=== PATIENT | male | born 1955 | race African-American/Black ===

== ENCOUNTER 2017-08-16 15:34 | Inpatient (IN) | payer OTHER ==
[2017-08-16 15:51] VITALS: BMI 19.5
--- NOTE | 2017-08-16 19:58 | HP ---
COWS - Scale Resting Pulse: 1= ID [id number] Sweatin=Flushed/Facial Moisture Restless Observation: 3= Extraneous Movement Pupil Size: 2= Moderately Dilated Bone or Joint Aches: 2= Severe Diffuse Aches Runny Nose/ Eye Tearin= Runny Nose/Eyes GI Upset > 30mins: 3= Vomiting/Diarrhea Tremor Observation: 2= Slight Tremor Visible Yawning Observation: 2= >3x During Session Anxiety or Irritability: 2=Irritable/Anxious Goose Flesh Skin: 0=Smooth Skin COWS Score: 21 Admission ROS S - HPI Chief Complaint: i need help to stop using heroin Allergies/Adverse Reactions: Allergies Allergy/AdvReac Type Severity Reaction Status Date / Time No Known Allergies Allergy Verified 08/16/17 19:54 History of Present Illness: this 61 years old male with heroin dependence,seeking detox,withdrawal symptom, last detox 30 ears ago [facility], type 2 dm for 4 years on metformin 500 mgs po bid htn no med left inguinal hernia for 20 years seen in the clinic in [facility] sobriety 3 years nicotine dependence Exam Limitations: No Limitations - Ebola screening Have you traveled outside of the country in the last 21 days: No Have you had contact with anyone from an Ebola affected area: No Have you been sick,other than usual withdrawal symptoms: No Do you have a fever: No - Review of Systems Constitutional: Chills, Loss of Appetite, Malaise, Night Sweats, Changes in sleep, Weakness, Unintentional Wgt. Loss EENT: reports: Tearing, Nose Congestion Respiratory: reports: No Symptoms reported Cardiac: reports: No Symptoms Reported GI: reports: Diarrhea, Nausea, Vomiting, Abdominal cramping : reports: No Symptoms Reported Musculoskeletal: reports: Back Pain, Joint Pain, Muscle Pain, Joint Stiffness Integumentary: reports: Dryness Neuro: reports: Headache, Tremors Endocrine: reports: No Symptoms Reported Hematology: reports: No Symptoms Reported Psychiatric: reports: No Sypmtoms Reported (insomnia), Judgement Intact, Mood/ Affect Appropiate, Anxious, Depressed Patient History - Patient Medical History Hx Anemia: No Hx Asthma: No Hx Chronic Obstructive Pulmonary Disease (COPD): No Hx Cancer: No Hx Cardiac Disorders: No Hx Congestive Heart Failure: No Hx Hypertension: Yes (no medication) Hx Hypercholesterolemia: No Hx Pacemaker: No HX Cerebrovascular Accident: No Hx Seizures: No Hx Dementia: No Hx Diabetes: Yes (4 years on metformin 500 mgs po bid) Hx Gastrointestinal Disorders: No Hx Liver Disease: No Hx Genitourinary Disorders: No Hx Sexually Transmitted Disorders: No Hx Renal Disease (ESRD): No Hx Thyroid Disease: No Hx Human Immunodeficiency Virus (HIV): No (last 2017 negative ) Hx Hepatitis C: No Hx Depression: Yes Hx Suicide Attempt: No Hx Bipolar Disorder: No Hx Schizophrenia: No Other Medical History: insomnia,anxiety,no suicidal,no homicidal - Patient Surgical History Other Surgical History: tonsillectomy at age of 17 years - Smoking Cessation Smoking history: Current every day smoker Have you smoked in the past 12 months: Yes Aproximately how many cigarettes per day: 7 Cigars Per Day: 0 Hx Chewing Tobacco Use: No Initiated information on smoking cessation: Yes 'Breaking Loose' booklet given: 08/16/17 - Substance & Tx. History Hx Substance Use: Yes Substance Use Type: Heroin Hx Substance Use Treatment: Yes (30 years ago [facility]) - Substances Abused Heroin Route: Inhalation Frequency: Daily Amount used: 5 bags Age of first use: 29 Date of Last Use: 08/16/17 Family Disease History - Family Disease History Family Disease History: Diabetes: Brother, [place]: Father ( ,alcohol,cancer of throat), Other: Mother (alcohol,) Admission Physical Exam S - Vital Signs Vital Signs: Vital Signs - 24 hr 08/16/17 15:40 Temperature 98.1 F Pulse Rate 91 H Respiratory 20 Rate Blood Pressure 157/92 - Physical General Appearance: Yes: Moderate Distress, Tremorous, Irritable, Sweating, Anxious HEENTM: Yes: Normal ENT Inspection, ANNELISE, Pharynx Normal Respiratory: Yes: Lungs Clear, Normal Breath Sounds, No Respiratory Distress Neck: Yes: Within Normal Limits, Supple, Trachea in good position Breast: Yes: Within Normal Limits Cardiology: Yes: Within Normal Limits, Regular Rhythm, Regular Rate, S1, S2 Abdominal: Yes: Within Normal Limits, Normal Bowel Sounds, Non Tender, Soft, Other (left inguino scrotal hernia no tenderness) Genitourinary: Yes: Within Normal Limits Back: Yes: Muscle Spasm Musculoskeletal: Yes: full range of Motion, Back pain, Muscle Pain Extremities: Yes: Within Normal Limits, Normal Range of Motion, Tremors Neurological: Yes: account services manager II-XII NML intact, Fully Oriented, Alert, Motor Strength 5/5 Integumentary: Yes: Dry Lymphatic: Yes: Within Normal Limits - Diagnostic (1) Opioid dependence with withdrawal Current Visit: Yes Status: Acute (2) DM2 (diabetes mellitus, type 2) Current Visit: Yes Status: Acute (3) Left inguinal hernia Current Visit: Yes Status: Acute (4) Nicotine dependence Current Visit: Yes Status: Acute (5) Weight loss Current Visit: Yes Status: Acute (6) Neuropathy Current Visit: Yes Status: Acute (7) Insomnia secondary to depression with anxiety Current Visit: Yes Status: Acute Cleared for Admission [facility] - Detox or Rehab [facility] Level of Care: Medically Managed Detox Regimen/Protocol: Methadone [facility] Breath Alcohol Content Breath Alcohol Content: 0 Urine Drug Screen - Results Drug Screen Negative: No Urine Drug Screen Results: OPI-Opiates, OXY-Oxycodone
[2017-08-16] MEDS ORDERED: P-EPHED 60MG/TRIPROLIDI 2.5MG TABLET PO PRN (20:15)
[2017-08-16] MEDS ORDERED: guaiFENesin/D-METHORPHAN HB 10 ML UNIT-DOSE CUPS PO PRN (20:15)
[2017-08-16] MEDS ORDERED: METHADONE HCL 10 MG TABLET (FOR DETOX USE ONLY) PO ONE ×2 (20:15→23:00)
[2017-08-16] MEDS ORDERED: MAG HYDROX/AL HYDROX/SIMETH 30 ML UNIT-DOSE CUP PO PRN (20:15)
[2017-08-16] MEDS ORDERED: MAGNESIUM HYDROX 2400MG/30ML ORAL SUSPENSION 30 ML CUP PO PRN (20:15)
[2017-08-16] MEDS ORDERED: ACETAMINOPHEN 325 MG TABLET (FP) PO PRN (20:15)
[2017-08-16] MEDS ORDERED: MAGNESIUM CITRATE 300 ML BOTTLE PO PRN (20:15)
[2017-08-16] MEDS ORDERED: LOPERAMIDE HCL 2 MG CAPSULE PO PRN (20:15)
[2017-08-16] MEDS ORDERED: MENTHOL/PHENOL 1 EACH UD MM PRN (20:15)
[2017-08-16] MEDS: cloNIDine HCL 0.1 MG TABLET PO SCH (22:06)
[2017-08-16] MEDS: THIAMINE HCL 100 MG TABLET (FP) PO SCH (22:06)
[2017-08-16] MEDS: diazePAM 5 MG TABLET PO PRN (22:06)
[2017-08-16] MEDS: CYCLOBENZAPRINE HCL 10 MG TABLET (FP) PO PRN (22:06)
[2017-08-16] MEDS: NICOTINE 21 MG/24 HOURS TOPICAL PATCH TD SCH (22:11)
[2017-08-16 23:24] LABS: URINE APPEARANCE CLEAR; URINE BLOOD NEGATIVE (NEGATIVE); URINE COLOR DKYELLOW; URINE GLUCOSE (UA) NEGATIVE (NEGATIVE); URINE KETONE NEGATIVE (NEGATIVE); URINE LEUK ESTERASE NEGATIVE (NEGATIVE); URINE NITRITE NEGATIVE (NEGATIVE); URINE PROTEIN NEGATIVE (NEGATIVE); URINE UROBILINOGEN 4.0 E.U/dl mg/dL (0.2-1.0)
[2017-08-17] MEDS: metFORMIN HCL 500 MG TABLET (FP) PO SCH ×2 (06:35→18:05)
--- NOTE | 2017-08-17 09:20 | EKG ---
Test Reason : Blood Pressure : / mmHG Vent. Rate : 073 BPM Atrial Rate : 073 BPM P-R Int : 124 ms QRS Dur : 092 ms QT Int : 382 ms P-R-T Axes : 076 049 043 degrees QTc Int : 420 ms NORMAL SINUS RHYTHM NORMAL ECG NO PREVIOUS ECGS AVAILABLE Confirmed by RITU CORBIN MD ([id number]) on 08/17/2017 9:19:44 AM Referred By: Confirmed By:RITU CORBIN MD
[2017-08-17 09:52] LABS: HEMATOCRIT 33.5 % (35.4-49); HEMOGLOBIN 10.7 GM/dL (11.7-16.9); MCH 27.3 pg (25.7-33.7); MCHC 32.1 g/dl (32.0-35.9); MEAN CELL VOLUME 85.1 fl (80-96); MEAN PLT VOLUME 8.2 fl (7.5-11.1); PLATELET COUNT 315 K/MM3 (134-434); RBC 3.93 M/mm3 (4.00-5.60); RDW 14.2 % (11.9-15.9); WHITE BLOOD COUNT 6.2 K/mm3 (4.0-10.0)
[2017-08-17] MEDS ORDERED: METHADONE HCL 10 MG TABLET (FOR DETOX USE ONLY) PO ONE (10:00)
[2017-08-17 10:09] LABS: CHLORIDE 104 mmol/L (98-107); POTASSIUM 4.2 mmol/L (3.5-5.1); SODIUM 140 mmol/L (136-145)
[2017-08-17] MEDS: cloNIDine HCL 0.1 MG TABLET PO SCH ×2 (10:13→22:17)
[2017-08-17] MEDS: PRENATAL VITAMINS W/ FOLIC ACID TABLET (FP) PO SCH (10:14)
[2017-08-17] MEDS: NICOTINE 21 MG/24 HOURS TOPICAL PATCH TD SCH (10:15)
[2017-08-17] MEDS: NICOTINE POLACRILEX 2 MG GUM BC PRN (10:17)
[2017-08-17 10:23] LABS: ALK PHOS 58 U/L (45-117); ANION GAP 7 (8-16); BILIRUBIN,TOTAL 0.4 mg/dL (0.2-1.0); BLOOD UREA NITROGEN 15 mg/dL (7-18); CALCIUM 7.9 mg/dL (8.5-10.1); CO2 29 mmol/L (21-32); CREATININE 0.6 mg/dL (0.7-1.3); GLUCOSE,RANDOM 102 mg/dL (74-106); SGOT/AST 8 U/L (15-37); SGPT/ALT 9 U/L (12-78); TOT PROT 5.9 g/dl (6.4-8.2)
--- NOTE | 2017-08-17 10:30 | PN ---
BHS COWS - Scale Resting Pulse: 0= [place] 80 or Below Sweatin=Flushed/Facial Moisture Restless Observation: 1= Difficult to Sit Still Pupil Size: 0= Normal to Room Light Bone or Joint Aches: 2= Severe Diffuse Aches Runny Nose/ Eye Tearin= Runny Nose/Eyes GI Upset > 30mins: 0= None Tremor Observation of Outstretched Hands: 2= Slight Tremor Visible Yawning Observation: 2= >3x During Session Anxiety or Irritability: 2=Irritable/Anxious Goose Flesh Skin: 0=Smooth Skin COWS Score: 13 BHS Progress Note (SOAP) Subjective: shakes sweats body aches headache Objective: 08/17/17 10:29 Vital Signs Temperature 97.5 F L 08/17/17 06:00 Pulse Rate 58 L 08/17/17 06:00 Respiratory Rate 16 08/17/17 06:00 Blood Pressure 116/75 08/17/17 06:00 O2 Sat by Pulse Oximetry (%) Laboratory Tests 08/16/17 08/16/17 08/17/17 20:42 23:10 06:33 WBC RBC Hgb Hct MCV MCH MCHC RDW Plt Count MPV POC Glucometer 140 124 Urine Color Dkyellow Urine Appearance Clear Urine pH 6.0 Ur Specific [place] 1.031 Urine Protein Negative Urine Glucose (UA) Negative Urine Ketones Negative Urine Blood Negative Urine Nitrite Negative Urine Bilirubin 2.0 Urine Urobilinogen 4.0 e.u/dl Ur Leukocyte Esterase Negative 08/17/17 07:30 WBC 6.2 RBC 3.93 L Hgb 10.7 L Hct 33.5 L MCV 85.1 MCH 27.3 MCHC 32.1 RDW 14.2 Plt Count 315 MPV 8.2 POC Glucometer Urine Color Urine Appearance Urine pH Ur Specific [place] Urine Protein Urine Glucose (UA) Urine Ketones Urine Blood Urine Nitrite Urine Bilirubin Urine Urobilinogen Ur Leukocyte Esterase aaox3 ambulating no acute distress Assessment: 08/17/17 10:30 withdrawal sx Plan: continue detox increase fluids
[2017-08-17 11:23] LABS: SICKLE CELL SCREEN NEGATIVE (NEGATIVE)
[2017-08-17] MEDS ORDERED: FLU VACCINE QUAD 60 MCG/0.5 ML (MDV 17-18) IM ONE (12:00)
[2017-08-17] MEDS ORDERED: PNEUMOC 13-VAL CONJ-DIP CRM/PF 0.5 ML DISP.SYRIN IM ONE (12:00)
[2017-08-17] MEDS ORDERED: PNEUMOCOCCAL 23 VACCINE 0.5 ML VIAL IM ONE (12:00)
--- NOTE | 2017-08-17 12:58 | CONSULT ---
[facility] Psychiatric Consult - Data Date of interview: 08/17/17 Admission source: [facility] Identifying data: Pt. is a 61 year old male, , father of three, and unemployed. This is patient's first admission to [facility]. Pt. admitted to for opiate dependence. Substance Abuse History: Following information confirmed with Mr. Davis: Smoking Cessation. Smoking history: Current every day smoker. Have you smoked in the past 12 months: Yes. Aproximately how many cigarettes per day: 7. Cigars Per Day: 0. Hx Chewing Tobacco Use: No. Initiated information on smoking cessation: Yes. 'Breaking Loose' booklet given: 08/16/17. - Substance & Tx. History. Hx Substance Use: Yes. Substance Use Type: Heroin. Hx Substance Use Treatment: Yes (30 years ago [facility]). - Substances Abused. Heroin. Route: Inhalation. Frequency: Daily. Amount used: 5 bags. Age of first use: 29. Date of Last Use: 08/16/17 Medical History: Hypertension, diabetes, and Hep C Psychiatric History: Pt. denies h/o psychiatric hospitalization, outpatient care , and suicide attempt. Physical/Sexual Abuse/Trauma History: Denies. Mental Status Exam - Mental Status Exam Alert and Oriented to: Time, Place, Person Cognitive Function: Good Patient Appearance: Unkempt Mood: Withdrawn Affect: Mood Congruent Patient Behavior: Guarded, Cooperative Speech Pattern: Delayed Voice Loudness: Moderately Soft/Quiet Thought Process: Goal Oriented Thought Disorder: Not Present Hallucinations: Denies Suicidal Ideation: Denies Homicidal Ideation: Denies Insight/Judgement: Poor Sleep: Poorly Appetite: Fair Muscle strength/Tone: Normal Gait/Station: Other (Did not observe patient ambulate.) Psychiatric Findings - Problem List ([place] 1, 2,3) (1) Opioid dependence with withdrawal Current Visit: Yes Status: Acute (2) Insomnia Current Visit: Yes Status: Acute (3) Nicotine dependence Current Visit: Yes Status: Chronic Qualifiers: Nicotine product type: cigarettes Substance use status: uncomplicated Qualified Code(s): F17.210 - Nicotine dependence, cigarettes, uncomplicated - Initial Treatment Plan Initial Treatment Plan: Psychoeducation provided. Detoxification in progress. Benadryl 25mg qhs ordered for insomnia. Benefits and side effects discussed. Verbal consent given. Will continue to monitor.
[2017-08-17] MEDS: CYCLOBENZAPRINE HCL 10 MG TABLET (FP) PO PRN (18:05)
[2017-08-17] MEDS: diazePAM 5 MG TABLET PO PRN ×2 (18:05→22:17)
[2017-08-17] MEDS: IBUPROFEN 400 MG TABLET (FP) PO PRN (18:06)
[2017-08-17] MEDS: THIAMINE HCL 100 MG TABLET (FP) PO SCH (22:18)
[2017-08-17] MEDS: diphenhydrAMINE HCL 25 MG CAPSULE (FP) PO PRN (22:19)
[2017-08-18] MEDS: metFORMIN HCL 500 MG TABLET (FP) PO SCH ×2 (06:03→17:41)
[2017-08-18] MEDS ORDERED: METHADONE HCL 5 MG TABLET (FOR DETOX USE ONLY) PO ONE (10:00)
[2017-08-18] MEDS: PRENATAL VITAMINS W/ FOLIC ACID TABLET (FP) PO SCH (10:07)
[2017-08-18] MEDS: cloNIDine HCL 0.1 MG TABLET PO SCH ×2 (10:07→23:05)
[2017-08-18] MEDS: diazePAM 5 MG TABLET PO PRN (10:07)
[2017-08-18] MEDS: NICOTINE 21 MG/24 HOURS TOPICAL PATCH TD SCH (10:10)
--- NOTE | 2017-08-18 12:51 | PN ---
BHS COWS - Scale Resting Pulse: 0= [place] 80 or Below Sweatin= Chills/Flushing Restless Observation: 3= Extraneous Movement Pupil Size: 1= Pupils >than Normal Bone or Joint Aches: 2= Severe Diffuse Aches Runny Nose/ Eye Tearin= Runny Nose/Eyes GI Upset > 30mins: 2= Nausea/Diarrhea Tremor Observation of Outstretched Hands: 2= Slight Tremor Visible Yawning Observation: 1= 1-2x During Session Anxiety or Irritability: 2=Irritable/Anxious Goose Flesh Skin: 0=Smooth Skin COWS Score: 16 S Progress Note (SOAP) Subjective: ALERT,IRRITABLE,ANXIOUS,INTERRUPTED SLEEP,PAIN IN THE BODY AND BACK Objective: 08/18/17 12:54 Vital Signs Temperature 97.7 F 08/18/17 09:55 Pulse Rate 87 08/18/17 09:55 Respiratory Rate 18 08/18/17 09:55 Blood Pressure 105/72 08/18/17 09:55 O2 Sat by Pulse Oximetry (%) Laboratory Last Values WBC 6.2 K/mm3 (4.0-10.0) 08/17/17 07:30 RBC 3.93 M/mm3 (4.00-5.60) L 08/17/17 07:30 Hgb 10.7 GM/dL (11.7-16.9) L 08/17/17 07:30 Hct 33.5 % (35.4-49) L 08/17/17 07:30 MCV 85.1 fl (80-96) 08/17/17 07:30 MCH 27.3 pg (25.7-33.7) 08/17/17 07:30 MCHC 32.1 g/dl (32.0-35.9) 08/17/17 07:30 RDW 14.2 % (11.9-15.9) 08/17/17 07:30 Plt Count 315 K/MM3 (134-434) 08/17/17 07:30 MPV 8.2 fl (7.5-11.1) 08/17/17 07:30 Sickle Cell Screen Negative (NEGATIVE) 08/17/17 07:30 Sodium 140 mmol/L (136-145) 08/17/17 07:30 Potassium 4.2 mmol/L (3.5-5.1) 08/17/17 07:30 Chloride 104 mmol/L (98-107) 08/17/17 07:30 Carbon Dioxide 29 mmol/L (21-32) 08/17/17 07:30 Anion Gap 7 (8-16) L 08/17/17 07:30 BUN 15 mg/dL (7-18) 08/17/17 07:30 Creatinine 0.6 mg/dL (0.7-1.3) L 08/17/17 07:30 Creat Clearance w eGFR > 60 (>60) 08/17/17 07:30 POC Glucometer 128 UNITS (80-120) 08/18/17 06:04 Random Glucose 102 mg/dL (74-106) 08/17/17 07:30 Calcium 7.9 mg/dL (8.5-10.1) L 08/17/17 07:30 Total Bilirubin 0.4 mg/dL (0.2-1.0) 08/17/17 07:30 AST 8 U/L (15-37) L 08/17/17 07:30 ALT 9 U/L (12-78) L 08/17/17 07:30 Alkaline Phosphatase 58 U/L (45-117) 08/17/17 07:30 Total Protein 5.9 g/dl (6.4-8.2) L 08/17/17 07:30 Albumin 3.0 g/dl (3.4-5.0) L 08/17/17 07:30 Urine Color Dkyellow 08/16/17 23:10 Urine Appearance Clear 08/16/17 23:10 Urine pH 6.0 (5.0-8.0) 08/16/17 23:10 Ur Specific [place] 1.031 (1.001-1.035) 08/16/17 23:10 Urine Protein Negative (NEGATIVE) 08/16/17 23:10 Urine Glucose (UA) Negative (NEGATIVE) 08/16/17 23:10 Urine Ketones Negative (NEGATIVE) 08/16/17 23:10 Urine Blood Negative (NEGATIVE) 08/16/17 23:10 Urine Nitrite Negative (NEGATIVE) 08/16/17 23:10 Urine Bilirubin 2.0 (NEGATIVE) 08/16/17 23:10 Urine Urobilinogen 4.0 e.u/dl mg/dL (0.2-1.0) 08/16/17 23:10 Ur Leukocyte Esterase Negative (NEGATIVE) 08/16/17 23:10 RPR Titer Nonreactive (NONREACTIVE) 08/17/17 07:30 HIV 1&2 Antibody Screen Negative 08/17/17 07:30 HIV P24 Antigen Negative 08/17/17 07:30 Assessment: 08/18/17 12:55 WITHDRAWAL SYMPTOM Plan: CONTINUE DETOX
[2017-08-18] MEDS: IBUPROFEN 400 MG TABLET (FP) PO PRN (17:44)
[2017-08-18] MEDS: NICOTINE POLACRILEX 2 MG GUM BC PRN (19:53)
[2017-08-18] MEDS: CYCLOBENZAPRINE HCL 10 MG TABLET (FP) PO PRN (23:05)
[2017-08-18] MEDS: diphenhydrAMINE HCL 25 MG CAPSULE (FP) PO PRN (23:06)
[2017-08-18] MEDS: THIAMINE HCL 100 MG TABLET (FP) PO SCH (23:06)
[2017-08-19] MEDS: metFORMIN HCL 500 MG TABLET (FP) PO SCH ×2 (07:03→17:25)
[2017-08-19] MEDS ORDERED: METHADONE HCL 5 MG TABLET (FOR DETOX USE ONLY) PO ONE (10:00)
[2017-08-19] MEDS: cloNIDine HCL 0.1 MG TABLET PO SCH ×2 (10:11→23:06)
[2017-08-19] MEDS: PRENATAL VITAMINS W/ FOLIC ACID TABLET (FP) PO SCH (10:11)
[2017-08-19] MEDS: diazePAM 5 MG TABLET PO PRN (10:11)
[2017-08-19] MEDS: IBUPROFEN 400 MG TABLET (FP) PO PRN (10:11)
[2017-08-19] MEDS: CYCLOBENZAPRINE HCL 10 MG TABLET (FP) PO PRN (10:11)
[2017-08-19] MEDS: NICOTINE 21 MG/24 HOURS TOPICAL PATCH TD SCH (10:12)
--- NOTE | 2017-08-19 16:14 | PN ---
BHS Progress Note (SOAP) Subjective: joint aches GI upset sweat restlessness anxiousness Objective: 08/19/17 16:13 Vital Signs Temperature 97.1 F L 08/19/17 14:39 Pulse Rate 80 08/19/17 14:39 Respiratory Rate 18 08/19/17 14:39 Blood Pressure 115/68 08/19/17 14:39 O2 Sat by Pulse Oximetry (%) Laboratory Last Values WBC 6.2 K/mm3 (4.0-10.0) 08/17/17 07:30 RBC 3.93 M/mm3 (4.00-5.60) L 08/17/17 07:30 Hgb 10.7 GM/dL (11.7-16.9) L 08/17/17 07:30 Hct 33.5 % (35.4-49) L 08/17/17 07:30 MCV 85.1 fl (80-96) 08/17/17 07:30 MCH 27.3 pg (25.7-33.7) 08/17/17 07:30 MCHC 32.1 g/dl (32.0-35.9) 08/17/17 07:30 RDW 14.2 % (11.9-15.9) 08/17/17 07:30 Plt Count 315 K/MM3 (134-434) 08/17/17 07:30 MPV 8.2 fl (7.5-11.1) 08/17/17 07:30 Sickle Cell Screen Negative (NEGATIVE) 08/17/17 07:30 Sodium 140 mmol/L (136-145) 08/17/17 07:30 Potassium 4.2 mmol/L (3.5-5.1) 08/17/17 07:30 Chloride 104 mmol/L (98-107) 08/17/17 07:30 Carbon Dioxide 29 mmol/L (21-32) 08/17/17 07:30 Anion Gap 7 (8-16) L 08/17/17 07:30 BUN 15 mg/dL (7-18) 08/17/17 07:30 Creatinine 0.6 mg/dL (0.7-1.3) L 08/17/17 07:30 Creat Clearance w eGFR > 60 (>60) 08/17/17 07:30 POC Glucometer 115 UNITS (80-120) 08/19/17 06:49 Random Glucose 102 mg/dL (74-106) 08/17/17 07:30 Calcium 7.9 mg/dL (8.5-10.1) L 08/17/17 07:30 Total Bilirubin 0.4 mg/dL (0.2-1.0) 08/17/17 07:30 AST 8 U/L (15-37) L 08/17/17 07:30 ALT 9 U/L (12-78) L 08/17/17 07:30 Alkaline Phosphatase 58 U/L (45-117) 08/17/17 07:30 Total Protein 5.9 g/dl (6.4-8.2) L 08/17/17 07:30 Albumin 3.0 g/dl (3.4-5.0) L 08/17/17 07:30 Urine Color Dkyellow 08/16/17 23:10 Urine Appearance Clear 08/16/17 23:10 Urine pH 6.0 (5.0-8.0) 08/16/17 23:10 Ur Specific [place] 1.031 (1.001-1.035) 08/16/17 23:10 Urine Protein Negative (NEGATIVE) 08/16/17 23:10 Urine Glucose (UA) Negative (NEGATIVE) 08/16/17 23:10 Urine Ketones Negative (NEGATIVE) 08/16/17 23:10 Urine Blood Negative (NEGATIVE) 08/16/17 23:10 Urine Nitrite Negative (NEGATIVE) 08/16/17 23:10 Urine Bilirubin 2.0 (NEGATIVE) 08/16/17 23:10 Urine Urobilinogen 4.0 e.u/dl mg/dL (0.2-1.0) 08/16/17 23:10 Ur Leukocyte Esterase Negative (NEGATIVE) 08/16/17 23:10 RPR Titer Nonreactive (NONREACTIVE) 08/17/17 07:30 HIV 1&2 Antibody Screen Negative 08/17/17 07:30 HIV P24 Antigen Negative 08/17/17 07:30 lab noted Assessment: 08/19/17 16:13 withdrawal sx Plan: continue detox
[2017-08-19] MEDS: THIAMINE HCL 100 MG TABLET (FP) PO SCH (23:06)
[2017-08-19] MEDS: hydrOXYzine PAMOATE 25 MG CAPSULE (FP) PO PRN (23:07)
[2017-08-20] MEDS: metFORMIN HCL 500 MG TABLET (FP) PO SCH ×2 (06:28→17:30)
[2017-08-20] MEDS ORDERED: METHADONE HCL 10 MG TABLET (FOR DETOX USE ONLY) PO ONE (10:00)
[2017-08-20] MEDS: PRENATAL VITAMINS W/ FOLIC ACID TABLET (FP) PO SCH (10:47)
[2017-08-20] MEDS: cloNIDine HCL 0.1 MG TABLET PO SCH ×2 (10:47→22:36)
[2017-08-20] MEDS: CYCLOBENZAPRINE HCL 10 MG TABLET (FP) PO PRN (10:47)
[2017-08-20] MEDS: NICOTINE 21 MG/24 HOURS TOPICAL PATCH TD SCH (10:48)
[2017-08-20] MEDS: hydrOXYzine PAMOATE 25 MG CAPSULE (FP) PO PRN (10:48)
--- NOTE | 2017-08-20 11:01 | PN ---
S Progress Note (SOAP) Subjective: ALERT,IRRITABLE,INTERRUPTED SLEEP Objective: 08/20/17 11:00 Vital Signs Temperature 98.8 F 08/20/17 06:00 Pulse Rate 76 08/20/17 06:00 Respiratory Rate 18 08/20/17 06:00 Blood Pressure 140/70 08/20/17 06:00 O2 Sat by Pulse Oximetry (%) Assessment: 08/20/17 11:00 WITHDRAWAL SYMPTOM Plan: CONTINUE DETOX,DISCHARGE IN AM
[2017-08-20] MEDS: THIAMINE HCL 100 MG TABLET (FP) PO SCH (22:36)
[2017-08-20] MEDS: diphenhydrAMINE HCL 25 MG CAPSULE (FP) PO PRN (22:38)
[2017-08-20 22:56] VITALS: TEMP 98.4
[2017-08-21] MEDS ORDERED: METHADONE HCL 5 MG TABLET (FOR DETOX USE ONLY) PO ONE (06:00)
[2017-08-21 06:19] VITALS: BP 145/85; PULSE 81
[2017-08-21] MEDS: metFORMIN HCL 500 MG TABLET (FP) PO SCH (06:31)
--- NOTE | 2017-08-21 08:17 | DS ---
[facility] Detox Discharge Summary Admission Date: 08/16/17 Discharge Date: 08/21/17 - History Present History: Opioid Dependence Additional Comments: FOLLOW UP WITH AFTER CARE PROGRAM ARRANGEMENT Pertinent Past History: TYPE 2 DM LEFT INGUINAL HERNIA NEUROPATHY NICOTINE DEPENDENCE WEIGHT LOSS INSOMNIA - Physical Exam Results Vital Signs: Vital Signs Temperature 98.4 F 08/21/17 06:00 Pulse Rate 81 08/21/17 06:00 Respiratory Rate 18 08/21/17 06:00 Blood Pressure 145/85 08/21/17 06:00 O2 Sat by Pulse Oximetry (%) Pertinent Admission Physical Exam Findings: WITHDRAWAL SIGNS AND SYMPTOM - Treatment Hospital Course: Detox Protocol Followed, Detoxed Safely, Responded well, Discharged Condition Good Patient has Accepted a Rehab Referral to: DECLINED - Medication Discharge Medications: Ambulatory Orders Metformin HCl 500 mg PO BID 08/16/17 - Diagnosis (1) Opioid dependence with withdrawal Current Visit: Yes Status: Acute (2) DM2 (diabetes mellitus, type 2) Current Visit: Yes Status: Chronic Qualifiers: Diabetes mellitus complication status: without complication Diabetes mellitus terminal make up operator insulin use: unspecified custodial insulin use status Qualified Code(s): E11.9 - Type 2 diabetes mellitus without complications (3) Left inguinal hernia Current Visit: Yes Status: Chronic (4) Nicotine dependence Current Visit: Yes Status: Chronic Qualifiers: Nicotine product type: cigarettes Substance use status: uncomplicated Qualified Code(s): F17.210 - Nicotine dependence, cigarettes, uncomplicated (5) Weight loss Current Visit: Yes Status: Acute (6) Neuropathy Current Visit: Yes Status: Chronic (7) Insomnia secondary to depression with anxiety Current Visit: Yes Status: Chronic - AMA Did Patient Leave Against Medical Advice: No
[2017-08-21] MEDS: cloNIDine HCL 0.1 MG TABLET PO SCH (09:23)
[2017-08-21] MEDS: NICOTINE 21 MG/24 HOURS TOPICAL PATCH TD SCH (09:24)
[2017-08-21] MEDS: PRENATAL VITAMINS W/ FOLIC ACID TABLET (FP) PO SCH (09:24)
== END 2017-08-21 09:35 | disposition home or self-care (01) | DRG 773 ==
LOC: YASAS 15:34 → Y6N 20:36
PROVIDERS: ADMIT Internal Medicine; ATTEND Internal Medicine
PROC: HZ2ZZZZ Detoxification Services for Substance Abuse Treatment (ICD-10-PCS; principal; 2017-08-16)
DX: F11.23 Opioid dependence with withdrawal (principal); F17.210 Nicotine dependence, cigarettes, uncomplicated; F41.8 Other specified anxiety disorders; G47.00 Insomnia, unspecified; G62.9 Polyneuropathy, unspecified; E11.9 Type 2 diabetes mellitus without complications; Z79.84 Long term (current) use of oral hypoglycemic drugs; K40.90 Unilateral inguinal hernia, without obstruction or gangrene, not specified as recurrent; R63.4 Abnormal weight loss; Z68.1 Body mass index [BMI] 19.9 or less, adult
CPT/HCPCS: 36415; 80053; 81003; 82962; 85027; 85660; 86593; 87389; 90688; 93005; 93010; J0735